=== PATIENT | female | born 1995 | race Caucasian/White ===

== ENCOUNTER 2024-12-31 14:39 | Outpatient (AMB) | payer BC, SELFPAY ==
[2024-12-31 15:02] VITALS: BP 132/73; PULSE 71; RESP 17; TEMP 36.8; O2SAT 97; BMI 32.8
--- NOTE | 2024-12-31 15:02 | AMB.GYNCLNOT ---
Vital Signs 12/31/24 15:02 Height 1.7 m Height Method Measured Weight 94.914 kg Weight Measurement Method Standing Scale BMI 32.8 BP 132/73 H Blood Pressure Source Automatic Cuff Blood Pressure Location Right Upper Arm Position Sitting Respiration 17 Pulse 71 Pulse Source Monitor Temp 98.3 F Temp Source Temporal Artery Scan Pulse Oximetry (%) 97 Oxygen Delivery Method Room Air Allergies/Home Meds Allergies & Medications Allergies No Known Allergies Allergy (Verified 12/31/24 15:03) Medication Reconciliation cetirizine 10 mg capsule (Zyrtec) 10 mg PO QDAY PRN 12/31/24 [History Confirmed 12/31/24] Intake Visit Data Collection New Patient or Established: New Patient (never been to 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 1. Little interest or pleasure in doing things: not at all 2. Feeling down, depressed, or hopeless: not at all Total score: 0 PHQ-9 3. Trouble falling or staying asleep, or sleeping too much: Not at all 4. Feeling tired or having little energy: Not at all 5. Poor appetite or overeating: Not at all 6. Feeling bad about yourself - or that you are a failure or have let yourself or your family down: Not at all 7. Trouble concentrating on things, such as reading the newspaper or watching television: Not at all 8. Moving or speaking so slowly that other people could have noticed? - Or the opposite - being so fidgety or restless that you have been moving around a lot more than usual: not at all 9. Thoughts that you would be better off or of hurting yourself in some way: Not at all Total score: 0 If you checked off any problems, how difficult have these problems made it for you to do your work, take care of things at home, or get along with other people?: not difficult at all Source: Developed by Drs. Jesu Alvarenga, Chen Vega, Sukumar Milian and colleagues, with an educational jefry from [employer]. Social History Living Situation History Marital Status: Lives With: Family Housing: House Tobacco History Smoking Status: Former smoker Alcohol History Alcohol Intake: Former Domestic Abuse History Do You Feel Safe at Home: Yes History of Present Illness HPI Narrative 29-year-old M[place]lla for [employer] AL[employer] exam. Her last period November 30, 2024. She reports that her periods are every month. They last about 6 days. She denies any existence of chronic illness or past medical history. Denies social habits. She had mastopexy no implants 2021 and no problems with that. She has no interval [employer] AL[employer] INST[employer]ER complaints. And calendar method for contraception Review of Systems Review of Systems Systems Reviewed: All systems reviewed, normal except as documented Exam Narrative Physical exam: Euthyroid. Both breasts are soft. Symmetrical. No masses palpated. No skin changes. Nipples are erect. Abdomen soft and nontender. No masses palpated. Perineum is clean no lesions noted. Vagina is pink with small amount of leukorrhea. Nulliparous cervix. No lesions noted. Uterus normal size and shape mobile and nontender. General Limitations: no limitations General Appearance: alert, in no apparent distress, comfortable, cooperative, healthy appearing, well developed and well groomed Head Head exam: atraumatic, normocephalic and normal inspection Resp Respiratory exam: Present normal lung sounds bilaterally Card Cardiovascular exam: Present regular rate, normal rhythm and normal heart sounds Abdominal Abdominal exam: Present soft and normal bowel sounds Office Procedures OB Clinic LOC & Office Proc's Nursing/Assessment Patient Status: Initial/New Patient OB Clinic Nursing Assessment: Medication Reconciliation, Update PMH in EMR and Vital Signs OB Clinic Coordination of Care: Complex Care and Chronic Disease 1-5, Consent,records obtained, informed consent and Education Simp Pt/Fam Miscellaneous Interventions: Pelvic/Pap Smear Set up New Patient Charge New Patient Point Assignment: [id number] New Patient Point Charge: [facility] Level 3 ([id number]) In Clinic Procedures Pap Smear: Yes Assessment & Plan Diagnosis / Problem List (1) Encounter for cervical Pap smear with pelvic exam: Status: Acute Additional Plan Follow Up: 3 Years (pap) 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
== END 2024-12-31 16:25 | disposition home or self-care (01) ==
LOC: HODSOBC 14:39
PROVIDERS: Supervising Provider Advanced Practice Midwife; Visit Provider Advanced Practice Midwife
DX: Z01.419 Encounter for gynecological examination (general) (routine) without abnormal findings (principal); Z87.891 Personal history of nicotine dependence
CPT/HCPCS: 99203; Q0091; G0463

== ENCOUNTER → 2025-03-09 | Outpatient (CLI) | payer BC, SELFPAY ==
--- NOTE | 2025-03-09 14:18 | XR_ITS ---
EXAMINATION: Ankle, left 3 views. Technique: Ankle AP, oblique, lateral 3 views Date and time of exam: March 09, 2025, 1511 hours INDICATIONS: Ankle sprain beginning 1 week ago. FINDINGS: Lateral malleolar soft tissue swelling No ankle fracture or dislocation IMPRESSION: No ankle fracture or dislocation
== END | disposition home or self-care (01) ==
PROVIDERS: PCP Family Medicine; Referring Provider Nurse Practitioner Family; Visit Provider Nurse Practitioner Family
DX: S99.912A Unspecified injury of left ankle, initial encounter (principal); X58.XXXA Exposure to other specified factors, initial encounter
CPT/HCPCS: 73610